=== PATIENT | female | born 2000 | race Caucasian/White ===

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

== ENCOUNTER 2021-11-28 23:24 | Emergency (ER) | payer OTHER ==
[~2021-11-28] VITALS: Ht 170.1 cm; Wt 95.3 kg
[2021-11-28 23:57] LABS: BASO # 0.1 10*3/uL (0.0-0.1); BASO % 0.4 % (0.0-1.0); EOS # 0.5 10*3/uL (0.0-0.4); EOS % 4.3 % (1.0-4.0); HEMATOCRIT 43.3 % (37.0-47.0); LYMPH % 33.2 % (27.0-41.0); MEAN CORPUSCULAR HGB 30.3 pg (27.0-31.0); MEAN CORPUSCULAR HGB CONC 34.4 g/dl (33.0-37.0); MEAN PLATELET VOLUME 9.7 fl (9.6-12.3); MONO # 0.8 10*3/uL (0.1-1.0); NEUT # 6.6 10*3/uL (2.3-7.9); NEUT % 54.9 % (47.0-73.0); PLATELET COUNT AUTOMATED 367 10*3/uL (130-400); RED BLOOD COUNT 4.92 10*6/uL (4.10-5.10); RED CELL DISTRI WIDTH 12.5 % (0-14.5)
[2021-11-29 00:11] LABS: BILIRUBIN Negative (Negative); BLOOD 3+ (Negative); CLARITY Cloudy (Clear); COLOR Dark Yellow (Yellow); GLUCOSE Negative (Negative); KETONE Trace (Negative); LEUKO ESTERASE Trace (Negative); NITRITE Negative (Negative); SPECIFIC GRAVITY >= 1.030 (1.001-1.030)
[2021-11-29 00:14] LABS: ALKALINE PHOSPHATASE 70 U/L (45-117); BUN 9 mg/dl (7-24); CHLORIDE 111 mmol/L (98-107); CREATININE 0.73 mg/dL (0.55-1.02); POTASSIUM 3.7 mmol/L (3.5-5.1); SGOT/AST 25 IU/L (3-35); SGPT/ALT 56 U/L (12-78); SODIUM 140 mmol/L (136-145); TOTAL PROTEIN 7.4 gm/dL (6.4-8.2)
[2021-11-29 00:17] LABS: ACETAMINOPHEN (TYLENOL) < 5.0 ug/ml (10-30); ETHYL ALCOHOL < 3.0 mg/dl (<3)
[2021-11-29 00:21] LABS: URINE AMPHETAMINES > 1000 (1000ng/ml); URINE BARBITURATES < 200 (200ng/ml); URINE BENZODIAZEPINES < 200 (200ng/ml); URINE CANNABINOIDS (THC) > 50 (50ng/ml); URINE COCAINE < 300 (300ng/ml); URINE METHADONE < 300 (300ng/ml); URINE OPIATES < 300 (300ng/ml); URINE PHENCYCLIDINE < 25 (25ng/ml)
[2021-11-29 00:33] LABS: CALCIUM OXALATE CRYSTALS 1+; EPITHELIAL CELLS 21-30
== END 2021-11-29 08:53 | disposition home or self-care (01) ==
LOC: ED 23:24
PROVIDERS: Internal Medicine
DX: F31.9 Bipolar disorder, unspecified (principal); F15.10 Other stimulant abuse, uncomplicated

== ENCOUNTER 2022-10-29 16:00 | Emergency (ER) | payer OTHER | END 2022-10-29 16:15 | disposition left against medical advice (07) | LOC: ED 16:00 | DX: R51.9 Headache, unspecified (principal); Z53.21 Procedure and treatment not carried out due to patient leaving prior to being seen by health care provider ==

== ENCOUNTER 2022-11-04 09:25 | Emergency (ER) | payer OTHER ==
[~2022-11-04] VITALS: Ht 167.6 cm; Wt 100.2 kg
[2022-11-04] MEDS ORDERED: METHYLPHENIDATE27 M3 PO (09:41)
[2022-11-04] MEDS ORDERED: AUVELITY ER 451 EACH PO (09:41)
[2022-11-04] MEDS ORDERED: NICODERM CQ1 EAC2 T (09:41)
[2022-11-04 10:23] LABS: BASO # 0.1 10*3/uL (0.0-0.1); BASO % 0.4 % (0.0-1.0); EOS # 0.3 10*3/uL (0.0-0.4); EOS % 2.4 % (1.0-4.0); HEMATOCRIT 43.8 % (37.0-47.0); LYMPH % 17.8 % (27.0-41.0); MEAN CELL VOLUME 90.3 fl (81.0-99.0); MEAN CORPUSCULAR HGB 30.1 pg (27.0-31.0); MEAN CORPUSCULAR HGB CONC 33.3 g/dl (33.0-37.0); MEAN PLATELET VOLUME 9.5 fl (9.6-12.3); MONO # 0.8 10*3/uL (0.1-1.0); MONO % 6.9 % (3.0-9.0); NEUT # 8.1 10*3/uL (2.3-7.9); NEUT % 72.2 % (47.0-73.0); PLATELET COUNT AUTOMATED 391 10*3/uL (130-400); RED BLOOD COUNT 4.85 10*6/uL (4.10-5.10); RED CELL DISTRI WIDTH 13.1 % (0-14.5); WHITE BLOOD COUNT 11.2 10*3/uL (4.8-10.8)
[2022-11-04 10:33] LABS: ACT PARTIAL THROMBO TIME 29.4 SECONDS (20.0-32.1)
[2022-11-04 10:41] LABS: ALKALINE PHOSPHATASE 79 U/L (46-116); BETA-HCG, QUANT < 3.0 mIU/mL (0-10); BUN 7 mg/dl (9-23); CHLORIDE 107 mmol/L (98-107); LIPASE 25 U/L (12-53); SGPT/ALT 14 U/L (10-49); TOTAL PROTEIN 7.2 gm/dL (6.0-8.0)
[2022-11-04] MEDS ORDERED: Motrin,Rufen800 MG PO (12:14)
== END 2022-11-04 12:27 | disposition home or self-care (01) ==
LOC: ED 09:25
PROVIDERS: Emergency Medicine
DX: R51.9 Headache, unspecified (principal); R11.0 Nausea; Z79.899 Other long term (current) drug therapy

== ENCOUNTER 2022-11-05 21:17 | Emergency (ER) | payer OTHER ==
[~2022-11-05] VITALS: Ht 170.1 cm; Wt 100.2 kg
[~2022-11-05 21:17] MED LIST: AUVELITY ER 451 EACH PO; METHYLPHENIDATE27 M3 PO; Motrin,Rufen800 MG PO; NICODERM CQ1 EAC2 T
[2022-11-06] MEDS ORDERED: CLINDAMYCIN PHO30 GM T (12:12)
== END 2022-11-05 21:59 | disposition left against medical advice (07) ==
LOC: ED 21:17
DX: R51.9 Headache, unspecified (principal); Z79.899 Other long term (current) drug therapy

== ENCOUNTER 2022-11-06 09:06 | Emergency (ER) | payer OTHER ==
[~2022-11-06] VITALS: Ht 167.6 cm; Wt 100.2 kg
[2022-11-06] MEDS ORDERED: CLINDAMYCIN PHO30 GM T (12:12)
== END 2022-11-06 14:00 | disposition home or self-care (01) ==
LOC: ED 09:06
DX: F31.9 Bipolar disorder, unspecified (principal); R51.9 Headache, unspecified; M54.2 Cervicalgia; Z79.899 Other long term (current) drug therapy

== ENCOUNTER 2022-11-10 11:14 | Emergency (ER) | payer OTHER ==
[~2022-11-10] VITALS: Ht 170.1 cm; Wt 100.2 kg
[~2022-11-10 11:14] MED LIST changes: +CLINDAMYCIN PHO30 GM T
== END 2022-11-10 12:24 | disposition left against medical advice (07) ==
LOC: ED 11:14
DX: R51.9 Headache, unspecified (principal); R11.0 Nausea; R10.9 Unspecified abdominal pain; Z79.899 Other long term (current) drug therapy

== ENCOUNTER 2024-03-19 11:46 | Emergency (ER) | payer BC, OTHER ==
[~2024-03-19] VITALS: Ht 172.7 cm; Wt 95.3 kg
[2024-03-19] MEDS ORDERED: AUVELITY ER 451 EACH PO (11:57)
[2024-03-19] MEDS ORDERED: HALOPERIDOL5 MG PO (11:57)
[2024-03-19 12:16] LABS: BASO # 0.1 10*3/uL (0.0-0.1); BASO % 0.4 % (0.0-1.0); EOS # 0.2 10*3/uL (0.0-0.4); EOS % 1.7 % (1.0-4.0); HEMATOCRIT 45.9 % (37.0-47.0); LYMPH # 2.4 10*3/uL (1.3-4.4); LYMPH % 17.6 % (27.0-41.0); MEAN CELL VOLUME 88.8 fl (81.0-99.0); MEAN CORPUSCULAR HGB 30.2 pg (27.0-31.0); MEAN PLATELET VOLUME 9.2 fl (9.6-12.3); MONO # 0.6 10*3/uL (0.1-1.0); MONO % 4.7 % (3.0-9.0); NEUT # 10.3 10*3/uL (2.3-7.9); NEUT % 75.3 % (47.0-73.0); PLATELET COUNT AUTOMATED 442 10*3/uL (130-400); RED BLOOD COUNT 5.17 10*6/uL (4.10-5.10); RED CELL DISTRI WIDTH 12.3 % (0-14.5); WHITE BLOOD COUNT 13.7 10*3/uL (4.8-10.8)
[2024-03-19 12:40] LABS: BUN 7 mg/dl (9-23); CHLORIDE 106 mmol/L (98-107); CPK 30 U/L (34-171); POTASSIUM 3.6 mmol/L (3.4-5.1)
[2024-03-19 12:44] LABS: B-hCG (QUALITATIVE) NEGATIVE (NEGATIVE); ETHYL ALCOHOL < 3.0 mg/dl (<3)
[2024-03-19 13:04] LABS: BILIRUBIN Negative (Negative); BLOOD Trace-Lysed (Negative); CLARITY Cloudy (Clear); COLOR Yellow (Yellow); GLUCOSE Negative (Negative); KETONE 3+ (Negative); LEUKO ESTERASE 2+ (Negative); NITRITE Negative (Negative); UROBILINOGEN 0.2 E.U./dl (0.0-1.0)
[2024-03-19 13:10] LABS: URINE AMPHETAMINES Positive (1000ng/ml); URINE BARBITURATES Negative (200ng/ml); URINE BENZODIAZEPINES Negative (200ng/ml); URINE CANNABINOIDS (THC) Positive (50ng/ml); URINE COCAINE Negative (300ng/ml); URINE METHADONE Negative (300ng/ml); URINE OPIATES Negative (300ng/ml); URINE PHENCYCLIDINE Negative (25ng/ml)
[2024-03-19 13:25] LABS: BACTERIA 2+; EPITHELIAL CELLS 51-100; WBC 16-20 wbc/hpf (0-5)
== END 2024-03-19 17:14 ==
LOC: ED 11:46
PROVIDERS: Physician Assistant Medical
DX: F31.9 Bipolar disorder, unspecified (principal); N39.0 Urinary tract infection, site not specified; F19.10 Other psychoactive substance abuse, uncomplicated; Z79.899 Other long term (current) drug therapy

== ENCOUNTER 2024-04-07 09:48 | Emergency (ER) | payer BC, OTHER ==
[~2024-04-07] VITALS: Ht 170.1 cm; Wt 110.2 kg
[~2024-04-07 09:48] MED LIST changes: +HALOPERIDOL5 MG PO
[2024-04-07] MEDS ORDERED: BUPROPION HYDR150 M3 PO (10:04)
[2024-04-07] MEDS ORDERED: PALIPERIDONE ER6 MG PO (10:06)
[2024-04-07 10:21] LABS: BASO % 0.4 % (0.0-1.0); EOS # 0.4 10*3/uL (0.0-0.4); EOS % 3.4 % (1.0-4.0); HEMATOCRIT 41.9 % (37.0-47.0); LYMPH % 27.7 % (27.0-41.0); MEAN CELL VOLUME 92.7 fl (81.0-99.0); MEAN CORPUSCULAR HGB 30.1 pg (27.0-31.0); MEAN CORPUSCULAR HGB CONC 32.5 g/dl (33.0-37.0); MEAN PLATELET VOLUME 9.5 fl (9.6-12.3); MONO # 0.7 10*3/uL (0.1-1.0); MONO % 6.6 % (3.0-9.0); NEUT # 6.6 10*3/uL (2.3-7.9); NEUT % 61.7 % (47.0-73.0); PLATELET COUNT AUTOMATED 409 10*3/uL (130-400); RED BLOOD COUNT 4.52 10*6/uL (4.10-5.10); RED CELL DISTRI WIDTH 12.7 % (0-14.5); WHITE BLOOD COUNT 10.7 10*3/uL (4.8-10.8)
[2024-04-07 10:21] LABS: BILIRUBIN Negative (Negative); BLOOD Negative (Negative); CLARITY Cloudy (Clear); COLOR Dark Yellow (Yellow); GLUCOSE Negative (Negative); KETONE Negative (Negative); LEUKO ESTERASE Trace (Negative); NITRITE Negative (Negative); PH 6.5 (4.5-8.0); SPECIFIC GRAVITY 1.015 (1.001-1.030)
[2024-04-07 10:37] LABS: URINE AMPHETAMINES Negative (1000ng/ml); URINE BARBITURATES Negative (200ng/ml); URINE BENZODIAZEPINES Negative (200ng/ml); URINE CANNABINOIDS (THC) Positive (50ng/ml); URINE COCAINE Negative (300ng/ml); URINE METHADONE Negative (300ng/ml); URINE OPIATES Negative (300ng/ml); URINE PHENCYCLIDINE Negative (25ng/ml)
[2024-04-07 10:47] LABS: BACTERIA TRACE; EPITHELIAL CELLS 16-20; MUCOUS 1+; RBC 0-2 rbc/hpf (0-2)
[2024-04-07 10:52] LABS: ALKALINE PHOSPHATASE 81 U/L (46-116); BUN 7 mg/dl (9-23); CHLORIDE 107 mmol/L (98-107); CPK 57 U/L (34-171); POTASSIUM 3.2 mmol/L (3.4-5.1); SGPT/ALT 43 U/L (5-49); TOTAL PROTEIN 7.2 gm/dL (6.0-8.0)
[2024-04-07 10:55] LABS: ETHYL ALCOHOL < 3.0 mg/dl (<3)
[2024-04-07] MEDS ORDERED: POTASSIUM CHLORIDE 20 MEQ TAB PO ONE (11:20)
[2024-04-07] MEDS ORDERED: DIAZEPAM 5 MG TAB PO ONE (14:10)
== END 2024-04-07 15:26 ==
LOC: ED 09:48
PROVIDERS: Internal Medicine
DX: F31.9 Bipolar disorder, unspecified (principal); F19.10 Other psychoactive substance abuse, uncomplicated; Z87.891 Personal history of nicotine dependence; Z79.899 Other long term (current) drug therapy

== ENCOUNTER 2024-04-18 14:44 | Emergency (ER) | payer BC, OTHER ==
[~2024-04-18 14:44] MED LIST changes: +BUPROPION HYDR150 M3 PO; +PALIPERIDONE ER6 MG PO
[2024-04-18] MEDS ORDERED: ACETAMINOPHEN 325 MG TAB PO ONE (15:20)
[2024-04-18 15:37] LABS: BASO # 0.1 10*3/uL (0.0-0.1); BASO % 0.3 % (0.0-1.0); EOS # 0.4 10*3/uL (0.0-0.4); EOS % 2.3 % (1.0-4.0); HEMATOCRIT 38.4 % (37.0-47.0); LYMPH # 3.1 10*3/uL (1.3-4.4); LYMPH % 20.8 % (27.0-41.0); MEAN CORPUSCULAR HGB 29.9 pg (27.0-31.0); MEAN CORPUSCULAR HGB CONC 32.8 g/dl (33.0-37.0); MEAN PLATELET VOLUME 9.1 fl (9.6-12.3); MONO # 0.9 10*3/uL (0.1-1.0); MONO % 5.7 % (3.0-9.0); NEUT # 10.6 10*3/uL (2.3-7.9); NEUT % 70.4 % (47.0-73.0); PLATELET COUNT AUTOMATED 468 10*3/uL (130-400); RED BLOOD COUNT 4.22 10*6/uL (4.10-5.10); RED CELL DISTRI WIDTH 12.8 % (0-14.5)
[2024-04-18 15:51] LABS: BILIRUBIN Negative (Negative); BLOOD Negative (Negative); CLARITY Cloudy (Clear); COLOR Yellow (Yellow); GLUCOSE Negative (Negative); KETONE Trace (Negative); LEUKO ESTERASE 1+ (Negative); NITRITE Negative (Negative); SPECIFIC GRAVITY >= 1.030 (1.001-1.030); UROBILINOGEN 0.2 E.U./dl (0.0-1.0)
[2024-04-18 15:54] LABS: ALKALINE PHOSPHATASE 78 U/L (46-116); BUN 9 mg/dl (9-23); CHLORIDE 106 mmol/L (98-107); POTASSIUM 3.6 mmol/L (3.4-5.1); SGPT/ALT 10 U/L (5-49); TOTAL PROTEIN 7.1 gm/dL (6.0-8.0)
[2024-04-18 15:59] LABS: URINE AMPHETAMINES Negative (1000ng/ml); URINE BARBITURATES Negative (200ng/ml); URINE BENZODIAZEPINES Negative (200ng/ml); URINE CANNABINOIDS (THC) Positive (50ng/ml); URINE COCAINE Negative (300ng/ml); URINE METHADONE Negative (300ng/ml); URINE OPIATES Negative (300ng/ml); URINE PHENCYCLIDINE Negative (25ng/ml)
[2024-04-18 16:02] LABS: BETA-HCG, QUANT < 3.0 mIU/mL (3-10); ETHYL ALCOHOL < 3.0 mg/dl (<3)
[2024-04-18 16:05] LABS: BACTERIA TRACE
== END 2024-04-18 21:17 ==
LOC: ED 14:44
PROVIDERS: Internal Medicine
DX: F31.9 Bipolar disorder, unspecified (principal); R10.2 Pelvic and perineal pain; Z79.899 Other long term (current) drug therapy